=== PATIENT | male | born 1990 | race Caucasian/White ===

== ENCOUNTER 2018-02-06 19:04 | Inpatient (IN) | payer OTHER, SELFPAY ==
[~2018-02-06 19:04] MED LIST: ISOVUE-370 76%-LOCM 1 ML ONE; Lidocaine 1% PF 5 ML VIAL ONE; PROPOFOL 200 MG/20 ML VIAL ONE
[2018-02-06] MEDS ORDERED: Adacel (T-DAP) 0.5 ML VIAL ONE (19:11)
[2018-02-06] MEDS ORDERED: manNITOL 20% 500 ML ONE (19:15)
[2018-02-06] MEDS ORDERED: Atropine Sulfate 1 mg/10 ml Syringe ONE (19:15)
[2018-02-06] MEDS ORDERED: Midazolam HCl 5 mg/ml Vial ONE (19:19)
[2018-02-06] MEDS ORDERED: Fentanyl 100 MCG/2 ML VIAL ONE ×2 (19:20→19:28)
[2018-02-06 19:21] LABS: #Basophils 0.1 thou/uL (0.0-0.2); #Eosinphils 0.1 thou/uL (0.0-0.7); #Lymphocytes 2.9 thou/uL (1.20-3.40); #Monocytes 2.1 thou/uL (0.11-0.59); #Neutrophils 13.5 thou/uL (1.40-6.50); %Basophils 0.3 % (0.0-1.0); %Eosinophils 0.7 % (0.0-10.0); %Lymphocytes 15.6 % (21.0-51.0); %Monocytes 11.1 % (0.0-10.0); %Neutrophils 72.2 % (42.0-75.0); Hemoglobin 14.9 g/dL (14.0-18.0); Mean Corpuscular HGB CONC 34.7 g/dL (32.0-36.0); Mean Corpuscular Hemoglobin 29.6 pg (27.0-31.0); Mean Corpuscular Volume 85.2 fL (78.0-98.0); Mean Platelet Volume 7.3 fL (7.4-10.4); Platelet Count 196 thou/uL (130-400); RBC Distribution Width 11.5 % (11.5-14.5); Red Blood Cell (RBC) Count 5.04 mill/uL (4.70-6.10); White Blood Cell (WBC) Count 18.7 thou/uL (4.8-10.8)
[2018-02-06] MEDS ORDERED: HYDROmorphone 0.5 MG/0.5 ML SYRINGE ONE (19:28)
[2018-02-06] MEDS ORDERED: Midazolam HCl 2 mg/2 ml Vial ONE (19:28)
[2018-02-06] MEDS ORDERED: Lidocaine 0.5%/Epinephrine 1:200,000 50 ml Vial ONE (19:29)
[2018-02-06] MEDS ORDERED: Sodium Chloride 0.9% 30 ML ONE (19:29)
[2018-02-06] MEDS ORDERED: Thrombin 5000 UNITS/5 ML VIAL ONE ×2 (19:30→20:30)
[2018-02-06] MEDS ORDERED: CEFAZOLIN/Water 2 GM/20 ML SYRINGE SLOW IVP SCH (19:30)
[2018-02-06 19:37] LABS: ALT (SGPT) 44 U/L (8-55); AST (SGOT) 42 U/L (5-34); Albumin 4.2 g/dL (3.5-5.0); Alcohol Less than 10 mg/dL (Less than 10); Alkaline Phosphatase 82 U/L (40-150); Anion Gap 17 mmol/L (10-20); BUN (Urea Nitrogen) 12 mg/dL (8.9-20.6); Bilirubin, Total 0.6 mg/dL (0.2-1.2); Calc. Creatinine Clearance 0 mL/min (70-130); Calcium 8.5 mg/dL (7.8-10.44); Carbon Dioxide 20 mmol/L (22-29); Chloride 109 mmol/L (98-107); Estimated GFR-MDRD Greater than 90; Globulin 2.8 g/dL (2.4-3.5); Glucose 139 mg/dL (70-105); Potassium 3.7 mmol/L (3.5-5.1); Sodium 142 mmol/L (136-145)
[2018-02-06 19:51] LABS: Analyzer IN Cardio ER; CO2 Tension 42.4 mmHg (35.0-45.0); Puncture Site RRA; pH, Arterial 7.34 (7.35-7.45)
[2018-02-06 19:52] LABS: Actual Bicarbonate (HCO3a) 22.2 mEq/L (22-28); Base Excess (BEa) -3.5 mEq/L (-2.0 to +3.0); Hematocrit-ABG 38.8 % (42.0-52.0); Hemoglobin (Hb) 13.2 g/dL (14.0-18.0); O2 Tension (PaO2) 673.1 mmHg (80.0-100.0)
[2018-02-06 19:53] LABS: Calcium, Ionized 1.1 mmol/L (1.12-1.30)
[2018-02-06 20:00] LABS: INR-International Normal Ratio 1.2; PTT 28.5 SEC (22.9-36.1); Prothrombin Time 15.2 SEC (12.0-14.7)
[2018-02-06] MEDS ORDERED: Ondansetron HCl/PF 4 MG/2 ML Vial IVP PRN (20:11)
[2018-02-06] MEDS ORDERED: HumaLOG 300 UNITS/3 ML VIAL SC PRN (20:11)
[2018-02-06] MEDS ORDERED: Dextrose 50% Abboject 50 ML SYRINGE SLOW IVP PRN (20:11)
[2018-02-06] MEDS ORDERED: Dextrose 5% in Water 1,000 ML IV PRN (20:11)
[2018-02-06] MEDS ORDERED: Ondansetron ODT 4 MG TAB PO PRN (20:11)
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
[2018-02-06] MEDS ORDERED: Ventilator Sedation Protocol 1 EACH FS SCH (20:15)
[2018-02-06] MEDS ORDERED: Propofol BOLUS 1,000 MG/100 ML VIAL IV PRN (20:18)
[2018-02-06] MEDS ORDERED: Lorazepam 2 MG/ML VIAL SLOW IVP PRN (20:18)
[2018-02-06] MEDS ORDERED: DISCONTINUE PREVIOUS NARCOTIC PAIN MEDICATIONS AND BENZODIAZEPINES FS SCH (20:18)
[2018-02-06] MEDS ORDERED: Fentanyl BOLUS 250 ML IVPB PRN (20:18)
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
[2018-02-06 20:46] LABS: Bilirubin Negative (Negative); Blood, Urine Negative (Negative); Clarity CLEAR (Clear); Glucose, Urine (Dipstick) Negative (Negative); Leukocyte Negative (Negative); Nitrite Negative (Negative); Protein, Urine (Dipstick) 30 mg/dL (Neg-Trace); Specific Gravity, Urine 1.022 (1.002-1.036); Urobilinogen 0.2 mg/dL (0.2-1.0); pH, Urine 6.5 (5.0-9.0)
[2018-02-06 20:48] LABS: Bacteria/HPF None Seen HPF (None Seen); Hyaline Casts/LPF 0-3 HYALINE CAST LPF (0-3 Hyaline); Pathc Cast-AUWi Flag 0.43 (0-2.49); RBC/HPF 0-3 HPF (0-3); Squamous Epithelial 0-3 HPF (0-3); WBC/HPF 0-3 HPF (0-3)
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
[2018-02-06] MEDS ORDERED: Famotidine 20 MG TAB PO SCH (21:00)
[2018-02-06] MEDS ORDERED: Bacitracin Zinc Ointment 30 gm TUBE ONE (21:01)
--- NOTE | 2018-02-06 21:35 | RAD ---
PORTABLE CHEST ONE VIEW: 02/06/18 at 7:01 p.m. HISTORY: Central line placement. Respiratory failure. COMPARISON: Comparison made with earlier exam of 6:21 p.m. FINDINGS/IMPRESSION: Endotracheal tube remains in place. There has been interval placement of a nasogastric tube with tip in the projection of the stomach. There has been placement of a left subclavian central line with tip in the projection of the SVC. No pneumothoraces, lobar consolidation, or pleural effusions are seen. POS: [facility]
[2018-02-06] MEDS ORDERED: CEFAZOLIN 2 GM in Sodium Chloride 0.9% 100 ML IVPB SCH (22:00)
[2018-02-06 22:22] LABS: Actual Bicarbonate (HCO3a) 22.2 mEq/L (22-28); CO2 Tension 43.4 mmHg (35.0-45.0); O2 Tension (PaO2) 208.8 mmHg (80.0-100.0); pH, Arterial 7.33 (7.35-7.45)
[2018-02-06 22:23] LABS: Base Excess (BEa) -3.7 mEq/L (-2.0 to +3.0); Hematocrit-ABG 41.8 % (42.0-52.0); Hemoglobin (Hb) 13.7 g/dL (14.0-18.0); Puncture Site ALINE
[2018-02-06] MEDS: Sodium Chloride 0.9% 1,000 ML IV SCH (22:31)
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
[2018-02-06] MEDS ORDERED: Famotidine/PF 20 mg/2ml Vial SLOW IVP SCH (23:00)
[2018-02-06] MEDS: Famotidine/PF 20 mg/2ml Vial SLOW IVP SCH (23:33)
[2018-02-06] MEDS: fentaNYL Citrate/PF 2,000 MCG in Sodium Chloride 0.9% 60 ML IV SCH (23:42)
[2018-02-06] MEDS ORDERED: Labetalol HCl 100 MG/20 ML VIAL SLOW IVP PRN (23:43)
[2018-02-06] MEDS: Acetaminophen 1,000 MG in Premix Bag 1 BAG IVPB SCH (23:54)
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
[2018-02-07 02:42] LABS: Anion Gap 16 mmol/L (10-20); BUN (Urea Nitrogen) 9 mg/dL (8.9-20.6); Calc. Creatinine Clearance 156 mL/min (70-130); Calcium 8.5 mg/dL (7.8-10.44); Carbon Dioxide 21 mmol/L (22-29); Chloride 108 mmol/L (98-107); Estimated GFR-MDRD Greater than 90; Glucose 170 mg/dL (70-105); Magnesium 1.9 mg/dL (1.6-2.6); Phosphorus 2.9 mg/dL (2.3-4.7); Potassium 3.9 mmol/L (3.5-5.1); Sodium 141 mmol/L (136-145)
[2018-02-07 02:49] LABS: Band 20 % (5-11); Hemoglobin 13.2 g/dL (14.0-18.0); Lymphocytes 2 % (21-51); MDiff Complete? YES; Mean Corpuscular Hemoglobin 29.9 pg (27.0-31.0); Mean Corpuscular Volume 85.4 fL (78.0-98.0); Mean Platelet Volume 7.3 fL (7.4-10.4); Monocytes 13 % (0-10); Neutrophil 65 % (42-75); Platelet Count 218 thou/uL (130-400); RBC Distribution Width 11.5 % (11.5-14.5); White Blood Cell (WBC) Count 21.9 thou/uL (4.8-10.8)
[2018-02-07] MEDS ORDERED: Mannitol 12.5 GM/50 ML SLOW IVP SCH (03:00)
[2018-02-07] MEDS: Mannitol 12.5 GM/50 ML SLOW IVP SCH ×2 (03:08→10:26)
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
--- NOTE | 2018-02-07 03:11 | OP ---
PREOPERATIVE DIAGNOSES: Trauma respiratory failure, right epidural hematoma, facial fractures. POSTOPERATIVE DIAGNOSES: Trauma respiratory failure, right epidural hematoma, facial fractures. PROCEDURE: Left subclavian vein triple lumen catheter. SURGEON: Yunior Song M.D. ANESTHESIA: None. The patient is intubated. PROCEDURE: At the patient's bedside using sterile technique, left periclavicular area was prepared w ith ChloraPrep, draped in routine fashion. Trocar catheter reduced. Infraclavicular approached the subclavian vein, threading the J-wire, removed the trocar, used the Seldinger technique to place a tr iple lumen catheter, removed the J wire, secured with 2 interrupted sutures of 3-0 silk. Each port a spirated blood and flushed with saline solution. Sterile dressing applied. The patient tolerated th e procedure well.
[2018-02-07] MEDS: CEFAZOLIN/Water 2 GM/20 ML SYRINGE SLOW IVP SCH ×3 (04:09→20:27)
[2018-02-07] MEDS: Propofol 1,000 MG/100 ML VIAL IV PRN ×2 (04:27→17:18)
--- NOTE | 2018-02-07 06:06 | OP ---
DATE OF PROCEDURE: 02/06/2018 SURGEON: Andrea Lou M.D. PHYSICIAN REPRESENTATIVE: Cory Washington PA-C INDICATION: Prevent neurologic decline. DIAGNOSIS: Right cerebral convexity epidural hematoma. PROCEDURE: Emergent right frontal parietal temporal craniectomy, evacuation of hematoma and placemen t of drain. ANESTHESIA: General. TECHNIQUE: The patient was brought into the operating room, already intubated. He was placed on the table in supine position. His head was turned to the left for exposure of the right side. His head was shaved. There was skin defect that have been repaired with sandeep in the emergency room. Afte r cleaning the right side of the head, a large curvilinear incision was planned. This area was prepp ed and draped in the usual sterile fashion. After prepping and draping and after an appropriate oper ative pause, the incision was created. The skin flap and galea were reflected anteriorly. There was a large coronal oriented skull fracture present from near the vertex down to the zygoma. [place] holes were then placed within the skull and craniotomy flap was turned utilizing the skull defect from the fracture. There is a very large epidural hematoma present which was suctioned away. There was a la rge arterial feeder inferiorly near the temporal lobe in the location of the superficial temporal art sofi. That was cauterized. After irrigating away clot and gaining hemostasis, the bone flap was plac ed in sterile storage. An epidural drain was placed and brought out through a separate puncture site . The wound was then closed in an anatomic layer and a pressure dressing was loosely applied. The p rocedure came to an end without known complication.
[2018-02-07] MEDS: Sodium Chloride 0.9% 1,000 ML IV SCH ×3 (06:22→21:49)
[2018-02-07] MEDS: Acetaminophen 1,000 MG in Premix Bag 1 BAG IVPB SCH ×3 (06:24→17:15)
[2018-02-07 08:29] LABS: Sodium 142 mmol/L (136-145)
[2018-02-07] MEDS ORDERED: Magnesium Sulfate 2 GM in Sodium Chloride 0.9% 100 ML IVPB SCH (08:30)
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
--- NOTE | 2018-02-07 10:37 | PRG ---
DATE OF SERVICE: 02/07/2018 SUBJECTIVE: Mr. Anguiano is postop day #1 following right epidural hematoma evacuation and craniecto my. This morning at bedside, he is actually following commands for me periodically speaking and rele asing the right and left upper extremity on request. He does spontaneously move the lower extremitie s from time to time. He has significant ecchymosis and edema of both orbits and there is no eye open ing or it is tend to touch. Drain output has been persistent as to be expected with this type of ble ed. I did not remove his head wrap to check his incision at the moment. Pressure symptoms stable, m annitol q.6 hours. He is still continuing with a sodium of 141 and osmolarity of 305. Neurosurgery will continue to follow.
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
[2018-02-07] MEDS ORDERED: Potassium Phosphate 15 MMOL in Sodium Chloride 0.9% 100 ML IVPB SCH (12:00)
[2018-02-07] MEDS: hydrALAZINE 20 MG/ML VIAL SLOW IVP PRN ×2 (20:24→20:50)
[2018-02-07] MEDS: Famotidine/PF 20 mg/2ml Vial SLOW IVP SCH (20:26)
[2018-02-07] MEDS: Labetalol HCl 100 MG/20 ML VIAL SLOW IVP PRN (22:03)
[2018-02-08] MEDS: Acetaminophen 1,000 MG in Premix Bag 1 BAG IVPB SCH (00:32)
[2018-02-08] MEDS: CEFAZOLIN/Water 2 GM/20 ML SYRINGE SLOW IVP SCH ×3 (04:03→19:47)
[2018-02-08 05:01] LABS: #Lymphocytes 1.1 thou/uL (1.20-3.40); #Monocytes 1.7 thou/uL (0.11-0.59); #Neutrophils 13.8 thou/uL (1.40-6.50); %Basophils 0.1 % (0.0-1.0); %Eosinophils 0.2 % (0.0-10.0); %Lymphocytes 6.4 % (21.0-51.0); %Monocytes 10.3 % (0.0-10.0); Hemoglobin 10.1 g/dL (14.0-18.0); Mean Corpuscular HGB CONC 33.6 g/dL (32.0-36.0); Mean Corpuscular Hemoglobin 29.2 pg (27.0-31.0); Mean Corpuscular Volume 87.2 fL (78.0-98.0); Mean Platelet Volume 7.5 fL (7.4-10.4); Platelet Count 159 thou/uL (130-400); RBC Distribution Width 11.6 % (11.5-14.5); Red Blood Cell (RBC) Count 3.45 mill/uL (4.70-6.10); White Blood Cell (WBC) Count 16.6 thou/uL (4.8-10.8)
[2018-02-08 05:31] LABS: Anion Gap 11 mmol/L (10-20); BUN (Urea Nitrogen) 6 mg/dL (8.9-20.6); Calc. Creatinine Clearance 172 mL/min (70-130); Calcium 8.4 mg/dL (7.8-10.44); Carbon Dioxide 25 mmol/L (22-29); Chloride 107 mmol/L (98-107); Estimated GFR-MDRD Greater than 90; Glucose 140 mg/dL (70-105); Magnesium 2.3 mg/dL (1.6-2.6); Phosphorus 2.1 mg/dL (2.3-4.7); Potassium 3.4 mmol/L (3.5-5.1); Sodium 140 mmol/L (136-145)
[2018-02-08] MEDS ORDERED: Mannitol 12.5 GM/50 ML IV SCH (06:00)
[2018-02-08] MEDS ORDERED: Thrombin 5000 UNITS/5 ML VIAL ONE (06:09)
[2018-02-08] MEDS ORDERED: Sodium Chloride 0.9% 10 ML ONE (06:09)
[2018-02-08] MEDS ORDERED: Bacitracin Zinc Ointment 30 gm TUBE ONE ×2 (06:09→08:50)
[2018-02-08] MEDS: Sodium Chloride 0.9% 1,000 ML IV SCH ×2 (06:28→14:16)
[2018-02-08] MEDS ORDERED: Fentanyl 100 MCG/2 ML VIAL ONE ×3 (06:28→08:25)
[2018-02-08] MEDS ORDERED: Lidocaine 0.5%/Epinephrine 1:200,000 50 ml Vial ONE (06:37)
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
--- NOTE | 2018-02-08 07:22 | PRG ---
DATE OF SERVICE: 02/08/2018 Mr. Anguiano is a 27-year-old gentleman known to me for evacuation of a large epidural hematoma on th e right side 2 days ago. As part of his recovery he had begun following commands and was awake. How ever, at some point early this morning the nurse noted that he use of less brisk with following comma nds and he had some changes in his pupil. A repeat CT scan revealed a new epidural hematoma on the c ontralateral side. This was on the left side. He has also had some reaccumulation of blood on the r ight and the frontal region. While he has no midline shift, he does have mass effect on both sides a nd I suspect that these changes are responsible for his change in his neurologic exam. The plan will be to bring him to the operating room emergently for evacuation of the left-sided epidural hematoma and possibly a reopening of the right side for evacuation of the right frontal component. I spoke br iefly with the patient's father this morning to update him on our plans.
[2018-02-08 08:56] LABS: #Lymphocytes 1.1 thou/uL (1.20-3.40); #Monocytes 1.4 thou/uL (0.11-0.59); #Neutrophils 12.4 thou/uL (1.40-6.50); %Basophils 0.1 % (0.0-1.0); %Eosinophils 0.2 % (0.0-10.0); %Lymphocytes 7.5 % (21.0-51.0); %Monocytes 9.1 % (0.0-10.0); %Neutrophils 83.2 % (42.0-75.0); Hemoglobin 9.2 g/dL (14.0-18.0); Mean Corpuscular HGB CONC 33.5 g/dL (32.0-36.0); Mean Corpuscular Volume 86.7 fL (78.0-98.0); Mean Platelet Volume 7.3 fL (7.4-10.4); Platelet Count 153 thou/uL (130-400); RBC Distribution Width 11.7 % (11.5-14.5); Red Blood Cell (RBC) Count 3.17 mill/uL (4.70-6.10); White Blood Cell (WBC) Count 14.9 thou/uL (4.8-10.8)
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
[2018-02-08] MEDS: fentaNYL Citrate/PF 2,000 MCG in Sodium Chloride 0.9% 60 ML IV SCH (10:12)
[2018-02-08] MEDS ORDERED: Fentanyl 100 MCG/2 ML VIAL SLOW IVP SCH (10:15)
[2018-02-08 10:20] LABS: Actual Bicarbonate (HCO3a) 23.3 mEq/L (22-28); Base Excess (BEa) 0.6 mEq/L (-2.0 to +3.0); CO2 Tension 30.4 mmHg (35.0-45.0); Calcium, Ionized 1.1 mmol/L (1.12-1.30); Hemoglobin (Hb) 9.5 g/dL (14.0-18.0); O2 Tension (PaO2) 72.8 mmHg (80.0-100.0); Puncture Site LRA
[2018-02-08] MEDS ORDERED: Pancrelipase DR 12000 1 CAP FS PRN (10:28)
[2018-02-08] MEDS ORDERED: Sodium Bicarbonate Tab 325 MG TAB PER TUBE PRN (10:28)
[2018-02-08] MEDS ORDERED: Potassium Phosphate 30 MMOL in Sodium Chloride 0.9% 250 ML 250 ML IVPB SCH (10:30)
[2018-02-08] MEDS: NS 0.9% w/ 20 MEQ KCL 1,000 ML/1,000 ML BAG IV SCH ×2 (10:31→15:39)
[2018-02-08] MEDS: Famotidine/PF 20 mg/2ml Vial SLOW IVP SCH ×2 (11:49→21:09)
[2018-02-08] MEDS: Propofol 1,000 MG/100 ML VIAL IV PRN ×2 (12:56→23:12)
[2018-02-08 13:12] LABS: ALV-art Gradient 115.675 (0-20); Actual Bicarbonate (HCO3a) 25.3 mEq/L (22-28); Base Excess (BEa) 1.4 mEq/L (-2.0 to +3.0); CO2 Tension 36.9 mmHg (35.0-45.0); Calcium, Ionized 1.1 mmol/L (1.12-1.30); Hemoglobin (Hb) 9.1 g/dL (14.0-18.0); O2 Tension (PaO2) 123.4 mmHg (80.0-100.0); Puncture Site LRA; pH, Arterial 7.45 (7.35-7.45)
[2018-02-08] MEDS ORDERED: Calcium Chloride 1 GM/10 ML Abboject SYRINGE IVP SCH (15:30)
[2018-02-08 16:03] LABS: #Lymphocytes 1.3 thou/uL (1.20-3.40); #Monocytes 1.4 thou/uL (0.11-0.59); #Neutrophils 14.9 thou/uL (1.40-6.50); %Basophils 0.2 % (0.0-1.0); %Eosinophils 0.2 % (0.0-10.0); %Lymphocytes 7.3 % (21.0-51.0); %Monocytes 7.8 % (0.0-10.0); %Neutrophils 84.5 % (42.0-75.0); Hemoglobin 8.7 g/dL (14.0-18.0); Mean Corpuscular HGB CONC 34.3 g/dL (32.0-36.0); Mean Corpuscular Hemoglobin 29.8 pg (27.0-31.0); Mean Corpuscular Volume 86.8 fL (78.0-98.0); Platelet Count 174 thou/uL (130-400); RBC Distribution Width 11.5 % (11.5-14.5); Red Blood Cell (RBC) Count 2.91 mill/uL (4.70-6.10); White Blood Cell (WBC) Count 17.7 thou/uL (4.8-10.8)
[2018-02-08 16:15] LABS: Actual Bicarbonate (HCO3a) 24.6 mEq/L (22-28); Base Excess (BEa) 0.2 mEq/L (-2.0 to +3.0); CO2 Tension 38.5 mmHg (35.0-45.0); Hemoglobin (Hb) 8.9 g/dL (14.0-18.0); O2 Tension (PaO2) 96.9 mmHg (80.0-100.0); pH, Arterial 7.42 (7.35-7.45)
[2018-02-08] MEDS ORDERED: Furosemide 20 MG/2 ML VIAL SLOW IVP SCH (16:15)
[2018-02-08 16:16] LABS: ALV-art Gradient 140.175 (0-20); Calcium, Ionized 1.3 mmol/L (1.12-1.30); Puncture Site ALINE
[2018-02-08] MEDS: Acetaminophen 500 MG TAB PO PRN ×2 (16:37→23:53)
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
[2018-02-08 18:53] LABS: Bilirubin Negative (Negative); Blood, Urine Negative (Negative); Clarity CLEAR (Clear); Glucose, Urine (Dipstick) Negative (Negative); Leukocyte Negative (Negative); Nitrite Negative (Negative); Protein, Urine (Dipstick) Negative (Neg-Trace); Specific Gravity, Urine 1.015 (1.002-1.036); Urobilinogen 0.2 mg/dL (0.2-1.0); pH, Urine 5.5 (5.0-9.0)
[2018-02-08 19:10] LABS: Actual Bicarbonate (HCO3a) 27.3 mEq/L (22-28); CO2 Tension 40.7 mmHg (35.0-45.0); Hematocrit-ABG 27.3 % (42.0-52.0); Hemoglobin (Hb) 9.2 g/dL (14.0-18.0); O2 Tension (PaO2) 115.4 mmHg (80.0-100.0); pH, Arterial 7.44 (7.35-7.45)
[2018-02-08 19:11] LABS: Calcium, Ionized 1.1 mmol/L (1.12-1.30); Puncture Site ALINE
[2018-02-08 19:12] LABS: ALV-art Gradient 190.225 (0-20)
[2018-02-08 19:13] LABS: Actual Bicarbonate (HCO3a) 27.3 mEq/L (22-28); CO2 Tension 40.7 mmHg (35.0-45.0); pH, Arterial 7.45 (7.35-7.45)
[2018-02-08 19:14] LABS: Calcium, Ionized 1.1 mmol/L (1.12-1.30); Hemoglobin (Hb) 9.1 g/dL (14.0-18.0); Puncture Site ALINE
[2018-02-08 19:15] LABS: ALV-art Gradient 167.625 (0-20)
[2018-02-08] MEDS: Piperacillin/Tazobactam 4.5 GM in Sodium Chloride 0.9% 100 ML IVPB SCH (21:28)
[2018-02-08 21:55] LABS: Actual Bicarbonate (HCO3a) 26.5 mEq/L (22-28); CO2 Tension 31.7 mmHg (35.0-45.0); Hemoglobin (Hb) 8.9 g/dL (14.0-18.0); O2 Tension (PaO2) 66.9 mmHg (80.0-100.0); pH, Arterial 7.54 (7.35-7.45)
[2018-02-08 21:56] LABS: Calcium, Ionized 1.1 mmol/L (1.12-1.30); Puncture Site ALINE
[2018-02-08 21:57] LABS: ALV-art Gradient 107.375 (0-20)
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
[2018-02-09] MEDS: Piperacillin/Tazobactam 4.5 GM in Sodium Chloride 0.9% 100 ML IVPB SCH ×4 (02:38→20:31)
[2018-02-09 04:21] LABS: Anion Gap 9 mmol/L (10-20); BUN (Urea Nitrogen) 13 mg/dL (8.9-20.6); Calc. Creatinine Clearance 181 mL/min (70-130); Calcium 7.9 mg/dL (7.8-10.44); Carbon Dioxide 26 mmol/L (22-29); Chloride 110 mmol/L (98-107); Estimated GFR-MDRD Greater than 90; Glucose 163 mg/dL (70-105); Phosphorus Less than 1.0 mg/dL (2.3-4.7); Potassium 3.2 mmol/L (3.5-5.1); Sodium 142 mmol/L (136-145)
[2018-02-09] MEDS ORDERED: Potassium Phosphate 30 MMOL in Sodium Chloride 0.9% 500 ML IVPB SCH ×2 (04:45→15:30)
[2018-02-09] MEDS: Vancomycin HCl 1.75 GM in Sodium Chloride 0.9% 500 ML IVPB SCH ×2 (05:01→13:01)
[2018-02-09 05:12] LABS: Band 13 % (5-11); Hemoglobin 8.4 g/dL (14.0-18.0); Lymphocytes 10 % (21-51); MDiff Complete? YES; Mean Corpuscular HGB CONC 34.6 g/dL (32.0-36.0); Mean Corpuscular Hemoglobin 30.1 pg (27.0-31.0); Mean Corpuscular Volume 86.9 fL (78.0-98.0); Mean Platelet Volume 7.2 fL (7.4-10.4); Monocytes 4 % (0-10); Neutrophil 73 % (42-75); Platelet Count 147 thou/uL (130-400); RBC Distribution Width 11.4 % (11.5-14.5); Red Blood Cell (RBC) Count 2.77 mill/uL (4.70-6.10); White Blood Cell (WBC) Count 20.4 thou/uL (4.8-10.8)
[2018-02-09] MEDS: Acetaminophen 500 MG TAB PO PRN (06:02)
[2018-02-09] MEDS: Propofol 1,000 MG/100 ML VIAL IV PRN ×2 (06:02→16:06)
[2018-02-09 07:29] LABS: Base Excess (BEa) 3.8 mEq/L (-2.0 to +3.0); Hemoglobin (Hb) 8.4 g/dL (14.0-18.0); O2 Tension (PaO2) 84.2 mmHg (80.0-100.0); Puncture Site ALINE; pH, Arterial 7.45 (7.35-7.45)
[2018-02-09] MEDS: fentaNYL Citrate/PF 2,000 MCG in Sodium Chloride 0.9% 60 ML IV SCH (08:33)
[2018-02-09] MEDS: Famotidine 20 MG TAB PER TUBE SCH ×2 (09:10→20:21)
[2018-02-09] MEDS: Docusate Sodium 100 MG/10 ML UDCUP PER TUBE SCH (09:10)
[2018-02-09] MEDS: Senokot 8.6 MG TAB PER TUBE SCH (09:14)
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
[2018-02-09] MEDS: Acetaminophen 325 MG TAB PO PRN ×2 (12:58→20:18)
[2018-02-09 14:34] LABS: Anion Gap 9 mmol/L (10-20); BUN (Urea Nitrogen) 12 mg/dL (8.9-20.6); Calc. Creatinine Clearance 204 mL/min (70-130); Carbon Dioxide 26 mmol/L (22-29); Chloride 111 mmol/L (98-107); Estimated GFR-MDRD Greater than 90; Glucose 130 mg/dL (70-105); Magnesium 1.8 mg/dL (1.6-2.6); Phosphorus 1.4 mg/dL (2.3-4.7); Potassium 3.4 mmol/L (3.5-5.1); Sodium 143 mmol/L (136-145)
[2018-02-09] MEDS ORDERED: Potassium Phosphate 30 MMOL, Magnesium Sulfate 2 GM in Sodium Chloride 0.9% 500 ML IVPB SCH (15:30)
[2018-02-09] MEDS ORDERED: MAGNESIUM IVPB SCH (15:30)
[2018-02-09] MEDS ORDERED: NS IVPB SCH (15:30)
[2018-02-09 21:37] LABS: Vancomycin, Trough 8.5 ug/mL
[2018-02-10] MEDS: Propofol 1,000 MG/100 ML VIAL IV PRN ×3 (01:16→19:19)
[2018-02-10] MEDS: Acetaminophen 325 MG TAB PO PRN ×3 (01:17→09:37)
[2018-02-10] MEDS: fentaNYL Citrate/PF 2,000 MCG in Sodium Chloride 0.9% 60 ML IV SCH (04:27)
[2018-02-10] MEDS: Piperacillin/Tazobactam 4.5 GM in Sodium Chloride 0.9% 100 ML IVPB SCH ×4 (04:28→21:01)
[2018-02-10 04:38] LABS: Anion Gap 8 mmol/L (10-20); BUN (Urea Nitrogen) 11 mg/dL (8.9-20.6); Calc. Creatinine Clearance 224 mL/min (70-130); Carbon Dioxide 27 mmol/L (22-29); Chloride 111 mmol/L (98-107); Estimated GFR-MDRD Greater than 90; Glucose 140 mg/dL (70-105); Magnesium 2.1 mg/dL (1.6-2.6); Potassium 3.4 mmol/L (3.5-5.1); Sodium 143 mmol/L (136-145)
[2018-02-10 04:41] LABS: Phosphorus 1.3 mg/dL (2.3-4.7)
[2018-02-10] MEDS ORDERED: Potassium Phosphate 30 MMOL in Sodium Chloride 0.9% 500 ML IVPB SCH ×2 (05:15→18:45)
[2018-02-10 05:49] LABS: Band 9 % (5-11); Hemoglobin 7.7 g/dL (14.0-18.0); Lymphocytes 4 % (21-51); MDiff Complete? YES; Mean Corpuscular HGB CONC 33.2 g/dL (32.0-36.0); Mean Corpuscular Hemoglobin 29.6 pg (27.0-31.0); Mean Platelet Volume 7.8 fL (7.4-10.4); Monocytes 5 % (0-10); Neutrophil 82 % (42-75); Platelet Count 146 thou/uL (130-400); RBC Distribution Width 11.6 % (11.5-14.5); Red Blood Cell (RBC) Count 2.59 mill/uL (4.70-6.10); White Blood Cell (WBC) Count 17.7 thou/uL (4.8-10.8)
[2018-02-10 07:50] LABS: Actual Bicarbonate (HCO3a) 24.8 mEq/L (22-28); CO2 Tension 35.8 mmHg (35.0-45.0); O2 Tension (PaO2) 76.7 mmHg (80.0-100.0); pH, Arterial 7.46 (7.35-7.45)
[2018-02-10 07:51] LABS: Hemoglobin (Hb) 7.8 g/dL (14.0-18.0)
[2018-02-10 07:52] LABS: Puncture Site ALINE
--- NOTE | 2018-02-10 07:54 | PRG ---
DATE OF SERVICE: 02/09/2018 SUBJECTIVE: Annmarie is admitted in the ICU. He is postop day #1 following a reoperation for evalua tion of left epidural hematoma and recollection of right epidural hematoma. He is heavily sedated at bedside and does not have much of neurologic examination though he does withdraw to pain. His pupil s are equal, round and react to light. His mean arterial pressure has been maintained around 60-80 o vernight. Drain output bilaterally, 20 mL total and 10 mL out of each over the last 12 hours. have remained below 18. He will likely still need a great deal of time for us to track his neurologi c status where the . His most recent CT scan shows persistent right-sided epidural hematoma, th ough all his basal cisterns are open. He has excellent tapia-white differentiation and does not appea r to be under any significant integrated pressure. Neurosurgery's plan will be to follow along.
[2018-02-10] MEDS ORDERED: cloNIDine 0.1 MG TAB PO SCH ×2 (08:45→09:20)
[2018-02-10] MEDS ORDERED: Vecuronium 10 MG VIAL ONE (08:58)
--- NOTE | 2018-02-10 09:25 | CT ---
PRELIMINARY REPORT/[facility]/EMERGENTY AFTER-HOURS PROCEDURE CT Head Without Intravenous Contrast CLINICAL HISTORY: 27 years old, male; Condition or disease; Aneurysm, cerebral; Prior surgery; Surgery date: 3-7 days p ost-operative; Patient HX: Follow up , S/P surgery yesterday TECHNIQUE: Axial computed tomography images of the head/brain without intravenous contrast. COMPARISON: CT Brain WO Con 2018-02-09 00:33 FINDINGS: Postoperative changes from recent bilateral craniectomy with surgical drain, subcutaneous gas, diffus e scalp soft tissue swelling and multiple skin sandeep. Right frontal epidural and subdural hematoma extending into the right parietal and temporal regions m easuring approximately 2.1 cm in greatest thickness in the right frontal region and containing focus of gas in the right temporal region, not significantly changed from prior examination. Resulting mass effect to the underlying right cerebral hemisphere with effacement of the right frontal horn and res ulting 5 mm midline shift to the left also unchanged. Smaller left frontal extra-axial blood containing gas measuring approximately 1 cm in greatest thickn ess in the left frontal region, unchanged from prior examination. Opacification of the bilateral ethmoid, sphenoid and left maxillary sinuses. Diffuse facial and preseptal periorbital soft tissue swelling bilaterally. Endotracheal and nasogastric tubes are in place. IMPRESSION: 1. Right greater than left bilateral intracranial hemorrhages as described above with midline shift t o the left, unchanged from prior examination. 2. Postsurgical changes from recent bilateral craniectomy as described above. Thank you for allowing us to participate in the care of your patient. Dictated and Authenticated by: Ryan Wright MD 02/10/2018 4:16 AM Central Time ([place] & [place]) CT HEAD NONCONTRAST: Date: 02-10-18 Performed on emergency basis at 0345 hours. History: Intracranial hemorrhage. Surgery. Follow up. Comparison: 02-09-18 FINDINGS: Agree with the preliminary report by Dr. Wright from [facility]. Post-operative changes are a gain demonstrated with pneumocephalus and bifrontal biconvex extraaxial hematomas that are unchanged in appearance. Leftward shift of the septum pellucidum and diffuse cerebral edema are not changed sig nificantly from the previous exam. No new abnormalities are evident. Code QA POS: [facility]
[2018-02-10] MEDS ORDERED: Dexamethasone 10 MG in Sodium Chloride 0.9% 50 ML IVPB SCH ×2 (09:30→13:45)
[2018-02-10] MEDS: Docusate Sodium 100 MG/10 ML UDCUP PER TUBE SCH (09:36)
[2018-02-10] MEDS: Senokot 8.6 MG TAB PER TUBE SCH (09:37)
[2018-02-10] MEDS: Famotidine 20 MG TAB PER TUBE SCH ×2 (09:37→21:00)
[2018-02-10] MEDS: Bisacodyl 10 MG SUPP PR SCH (11:12)
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
--- NOTE | 2018-02-10 11:35 | ULT ---
BILATERAL LOWER EXTREMITY VENOUS ULTRASOUND WITH DOPPLER: HISTORY: Head injury. COMPARISON: None. TECHNIQUE: Vu-scale, color-flow, and Doppler imaging with spectral wave-form analysis was performed of the lef t and right lower extremity venous system. FINDINGS: Limited evaluation of the right common femoral vein and greater saphenous vein due to bandage materia l in the groin. The right femoral vein and popliteal vein demonstrates compressibility, presence of flow, and augmentation. There is flow in the posterior tibial vein and in the profunda vein. With regard to the left lower extremity, there is compressibility, presence of flow, and augmentation in the common femoral vein, femoral vein, and popliteal vein. There is flow in the greater saphenou s vein, profunda vein, and posterior tibial vein. IMPRESSION: No evidence of thrombus in the visualized right and left lower extremity deep venous system. POS: [facility]
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
[2018-02-10] MEDS: NS 0.9% w/ 20 MEQ KCL 1,000 ML/1,000 ML BAG IV SCH (12:28)
[2018-02-10] MEDS ORDERED: Acetaminophen 1,000 MG in Premix Bag 1 BAG IVPB PRN (14:30)
[2018-02-10] MEDS: cloNIDine 0.1 MG TAB PO SCH ×2 (14:39→21:00)
[2018-02-10] MEDS ORDERED: Acetaminophen 1,000 MG in Premix Bag 1 BAG IVPB SCH (16:45)
[2018-02-10 17:07] LABS: ALV-art Gradient 79.575 (0-20); Actual Bicarbonate (HCO3a) 25.2 mEq/L (22-28); Base Excess (BEa) 1.7 mEq/L (-2.0 to +3.0); CO2 Tension 34.5 mmHg (35.0-45.0); Calcium, Ionized 1.1 mmol/L (1.12-1.30); Hemoglobin (Hb) 7.6 g/dL (14.0-18.0); O2 Tension (PaO2) 162.5 mmHg (80.0-100.0); Puncture Site ALINE; pH, Arterial 7.48 (7.35-7.45)
[2018-02-10] MEDS: Dexamethasone 10 MG in Sodium Chloride 0.9% 50 ML IVPB SCH (17:08)
[2018-02-10 17:37] LABS: Anion Gap 7 mmol/L (10-20); BUN (Urea Nitrogen) 10 mg/dL (8.9-20.6); Calc. Creatinine Clearance 222 mL/min (70-130); Carbon Dioxide 28 mmol/L (22-29); Chloride 111 mmol/L (98-107); Estimated GFR-MDRD Greater than 90; Glucose 135 mg/dL (70-105); Phosphorus 2.1 mg/dL (2.3-4.7); Potassium 3.5 mmol/L (3.5-5.1); Sodium 142 mmol/L (136-145)
[2018-02-10] MEDS: hydrALAZINE 20 MG/ML VIAL SLOW IVP PRN (20:31)
[2018-02-10] MEDS: Acetaminophen 1,000 MG in Premix Bag 1 BAG IVPB SCH (21:01)
[2018-02-11] MEDS: Dexamethasone 10 MG in Sodium Chloride 0.9% 50 ML IVPB SCH (01:00)
[2018-02-11] MEDS: Propofol 1,000 MG/100 ML VIAL IV PRN ×2 (01:39→08:49)
[2018-02-11] MEDS: Acetaminophen 1,000 MG in Premix Bag 1 BAG IVPB SCH ×2 (03:17→08:48)
[2018-02-11] MEDS: Piperacillin/Tazobactam 4.5 GM in Sodium Chloride 0.9% 100 ML IVPB SCH ×4 (03:18→20:41)
[2018-02-11] MEDS: cloNIDine 0.1 MG TAB PO SCH ×4 (03:18→20:42)
[2018-02-11 05:01] LABS: Anion Gap 9 mmol/L (10-20); BUN (Urea Nitrogen) 10 mg/dL (8.9-20.6); Calc. Creatinine Clearance 233 mL/min (70-130); Calcium 8.3 mg/dL (7.8-10.44); Carbon Dioxide 26 mmol/L (22-29); Chloride 110 mmol/L (98-107); Estimated GFR-MDRD Greater than 90; Glucose 112 mg/dL (70-105); Phosphorus 2.6 mg/dL (2.3-4.7); Potassium 3.8 mmol/L (3.5-5.1); Sodium 141 mmol/L (136-145)
[2018-02-11 05:17] LABS: Band 17 % (5-11); Hemoglobin 7.8 g/dL (14.0-18.0); Lymphocytes 9 % (21-51); MDiff Complete? YES; Mean Corpuscular HGB CONC 34.4 g/dL (32.0-36.0); Mean Corpuscular Hemoglobin 30.2 pg (27.0-31.0); Mean Corpuscular Volume 87.9 fL (78.0-98.0); Mean Platelet Volume 7.5 fL (7.4-10.4); Monocytes 1 % (0-10); Neutrophil 73 % (42-75); PLT Morphology Comment Appears Adequate; Platelet Count 170 thou/uL (130-400); RBC Distribution Width 11.7 % (11.5-14.5); Red Blood Cell (RBC) Count 2.56 mill/uL (4.70-6.10); White Blood Cell (WBC) Count 12.6 thou/uL (4.8-10.8)
[2018-02-11] MEDS ORDERED: Potassium Phosphate 30 MMOL in Sodium Chloride 0.9% 250 ML 250 ML IVPB SCH (08:15)
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
[2018-02-11] MEDS ORDERED: Vecuronium 10 MG VIAL ONE (08:53)
[2018-02-11] MEDS ORDERED: Lidocaine 1% w/Epinephrine 1:100K 20 ML VIAL ONE (08:55)
[2018-02-11] MEDS ORDERED: HYDROcodone/Acetaminophen 10/325 mg Tablet PO SCH (09:45)
[2018-02-11] MEDS ORDERED: HYDROcodone/Acetaminophen 10/325 mg Tablet PER TUBE SCH ×2 (09:45→09:46)
[2018-02-11] MEDS: Bisacodyl 10 MG SUPP PR SCH (11:06)
[2018-02-11] MEDS: Docusate Sodium 100 MG/10 ML UDCUP PER TUBE SCH (11:06)
[2018-02-11] MEDS: Senokot 8.6 MG TAB PER TUBE SCH (11:07)
[2018-02-11] MEDS: HYDROcodone/Acetaminophen 10/325 mg Tablet PER TUBE SCH ×2 (11:07→15:30)
[2018-02-11] MEDS: Famotidine 20 MG TAB PER TUBE SCH ×2 (11:07→20:42)
[2018-02-11] MEDS: Labetalol HCl 100 MG/20 ML VIAL SLOW IVP PRN (11:22)
--- NOTE | 2018-02-11 11:27 | RAD ---
SINGLE VIEW ABDOMEN: HISTORY: Dobhoff tube placement. COMPARISON: None FINDINGS: A single view of the upper abdomen shows a Dobhoff tube in the stomach. A nonobstructed bowel gas pa ttern is present. IMPRESSION: Dobhoff tube located in the stomach. POS: [facility]
[2018-02-11] MEDS: hydrALAZINE 20 MG/ML VIAL SLOW IVP PRN ×2 (12:54→19:29)
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
[2018-02-11] MEDS: NS 0.9% w/ 20 MEQ KCL 1,000 ML/1,000 ML BAG IV SCH (15:23)
[2018-02-11] MEDS ORDERED: traMADol HCl 50 MG TAB PO SCH (16:45)
[2018-02-11] MEDS: Acetaminophen 325 MG TAB PO SCH ×2 (16:51→20:43)
[2018-02-11] MEDS: traMADol HCl 50 MG TAB PO PRN ×2 (19:05→23:06)
[2018-02-11] MEDS ORDERED: Acetaminophen 325 MG TAB PO PRN (21:00)
[2018-02-11 21:26] LABS: Vancomycin, Trough 10.4 ug/mL
[2018-02-12] MEDS: Acetaminophen 325 MG TAB PO SCH ×6 (00:06→20:12)
[2018-02-12] MEDS: hydrALAZINE 20 MG/ML VIAL SLOW IVP PRN ×2 (01:42→06:49)
[2018-02-12] MEDS: Labetalol HCl 100 MG/20 ML VIAL SLOW IVP PRN (02:52)
[2018-02-12] MEDS: Piperacillin/Tazobactam 4.5 GM in Sodium Chloride 0.9% 100 ML IVPB SCH ×4 (02:53→20:03)
[2018-02-12] MEDS: cloNIDine 0.1 MG TAB PO SCH ×4 (02:53→20:06)
[2018-02-12] MEDS: traMADol HCl 50 MG TAB PO PRN ×2 (02:54→10:14)
[2018-02-12 04:26] LABS: Anion Gap 10 mmol/L (10-20); BUN (Urea Nitrogen) 14 mg/dL (8.9-20.6); Calc. Creatinine Clearance 230 mL/min (70-130); Calcium 8.2 mg/dL (7.8-10.44); Carbon Dioxide 26 mmol/L (22-29); Chloride 109 mmol/L (98-107); Estimated GFR-MDRD Greater than 90; Glucose 129 mg/dL (70-105); Magnesium 1.9 mg/dL (1.6-2.6); Phosphorus 2.2 mg/dL (2.3-4.7); Potassium 3.3 mmol/L (3.5-5.1); Sodium 142 mmol/L (136-145)
[2018-02-12 04:29] LABS: Band 3 % (5-11); Eosinophils 1 % (0-10); Hemoglobin 7.9 g/dL (14.0-18.0); Lymphocytes 7 % (21-51); MDiff Complete? YES; Mean Corpuscular HGB CONC 34.7 g/dL (32.0-36.0); Mean Corpuscular Hemoglobin 30.5 pg (27.0-31.0); Mean Platelet Volume 6.7 fL (7.4-10.4); Metamyelocyte 1 % (0-0); Monocytes 4 % (0-10); Neutrophil 84 % (42-75); PLT Morphology Comment Appears Adequate; Platelet Count 225 thou/uL (130-400); Polychromasia SLIGHT = 2-3 cells (100X) (0-2/hpf); Red Blood Cell (RBC) Count 2.58 mill/uL (4.70-6.10)
[2018-02-12] MEDS: NS 0.9% w/ 20 MEQ KCL 1,000 ML/1,000 ML BAG IV SCH ×2 (04:42→22:09)
[2018-02-12] MEDS: Vancomycin HCl 2.5 GM in Sodium Chloride 0.9% 500 ML IVPB SCH ×3 (06:01→21:55)
[2018-02-12] MEDS: Amantadine HCl 100 mg Capsule PO SCH (08:11)
[2018-02-12] MEDS: Docusate Sodium 100 MG/10 ML UDCUP PER TUBE SCH (08:12)
[2018-02-12] MEDS: Bisacodyl 10 MG SUPP PR SCH (08:12)
[2018-02-12] MEDS: Famotidine 20 MG TAB PER TUBE SCH ×2 (08:14→20:05)
[2018-02-12] MEDS: Senokot 8.6 MG TAB PER TUBE SCH (08:14)
[2018-02-12] MEDS ORDERED: Potassium Phosphate 30 MMOL, Magnesium Sulfate 4 GM in Sodium Chloride 0.9% 250 ML 250 ML IVPB SCH (08:45)
[2018-02-12] MEDS: Ferrous Sulfate 325 MG TAB PO SCH ×2 (10:15→20:05)
[2018-02-12] MEDS: Ascorbic Acid 500 mg Chewable Tablet PO SCH ×2 (10:15→20:06)
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
[2018-02-12] MEDS: Acetaminophen 1,000 MG in Premix Bag 1 BAG IVPB SCH (21:54)
[2018-02-13] MEDS: cloNIDine 0.1 MG TAB PO SCH ×4 (00:59→21:44)
[2018-02-13] MEDS: Acetaminophen 1,000 MG in Premix Bag 1 BAG IVPB SCH ×2 (03:53→10:42)
[2018-02-13] MEDS: Piperacillin/Tazobactam 4.5 GM in Sodium Chloride 0.9% 100 ML IVPB SCH ×4 (03:54→21:44)
[2018-02-13 05:53] LABS: Vancomycin, Trough 10.1 ug/mL
[2018-02-13 05:58] LABS: Anion Gap 11 mmol/L (10-20); BUN (Urea Nitrogen) 9 mg/dL (8.9-20.6); Calc. Creatinine Clearance 249 mL/min (70-130); Calcium 8.7 mg/dL (7.8-10.44); Carbon Dioxide 25 mmol/L (22-29); Chloride 107 mmol/L (98-107); Estimated GFR-MDRD Greater than 90; Glucose 81 mg/dL (70-105); Magnesium 2.1 mg/dL (1.6-2.6); Phosphorus 3.1 mg/dL (2.3-4.7); Potassium 3.9 mmol/L (3.5-5.1); Sodium 139 mmol/L (136-145)
[2018-02-13] MEDS: Vancomycin HCl 2.5 GM in Sodium Chloride 0.9% 500 ML IVPB SCH (06:09)
[2018-02-13 06:11] LABS: Band 17 % (5-11); Hemoglobin 9.6 g/dL (14.0-18.0); Lymphocytes 9 % (21-51); MDiff Complete? YES; Mean Corpuscular HGB CONC 33.4 g/dL (32.0-36.0); Mean Corpuscular Hemoglobin 29.3 pg (27.0-31.0); Mean Corpuscular Volume 87.8 fL (78.0-98.0); Mean Platelet Volume 6.5 fL (7.4-10.4); Metamyelocyte 5 % (0-0); Monocytes 6 % (0-10); Neutrophil 62 % (42-75); PLT Morphology Comment Appears Adequate; Platelet Count 309 thou/uL (130-400); RBC Distribution Width 12.2 % (11.5-14.5); Red Blood Cell (RBC) Count 3.26 mill/uL (4.70-6.10); White Blood Cell (WBC) Count 15.4 thou/uL (4.8-10.8)
[2018-02-13] MEDS: Ascorbic Acid 500 mg Chewable Tablet PO SCH ×2 (09:22→21:44)
[2018-02-13] MEDS: Amantadine HCl 100 mg Capsule PO SCH (09:22)
[2018-02-13] MEDS: Bisacodyl 10 MG SUPP PR SCH (09:23)
[2018-02-13] MEDS: Docusate Sodium 100 MG/10 ML UDCUP PER TUBE SCH (09:24)
[2018-02-13] MEDS: Ferrous Sulfate 325 MG TAB PO SCH ×2 (09:24→21:43)
[2018-02-13] MEDS: Senokot 8.6 MG TAB PER TUBE SCH (09:24)
[2018-02-13] MEDS: Famotidine 20 MG TAB PER TUBE SCH ×2 (09:24→21:43)
[2018-02-13] MEDS ORDERED: Acetaminophen 650 MG Suppository PR PRN (11:19)
[2018-02-13] MEDS: NS 0.9% w/ 20 MEQ KCL 1,000 ML/1,000 ML BAG IV SCH (14:53)
--- NOTE | 2018-02-13 17:09 | RAD ---
ONE VIEW ABDOMEN 02/13/18 HISTORY: Dobhoff feeding tube placement. COMPARISON: None. FINDINGS: Dobhoff feeding tube is identified with the distal tip at the level of the gastric antrum. Bowel gas pattern is nonspecific. IMPRESSION: Dobhoff feeding tube with the distal tip at the level of the gastric antrum. Advancement is recommend ed. POS: [facility]
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
[2018-02-14] MEDS: NS 0.9% w/ 20 MEQ KCL 1,000 ML/1,000 ML BAG IV SCH ×2 (01:42→12:19)
[2018-02-14] MEDS: Piperacillin/Tazobactam 4.5 GM in Sodium Chloride 0.9% 100 ML IVPB SCH ×2 (02:24→08:33)
[2018-02-14] MEDS: cloNIDine 0.1 MG TAB PO SCH ×4 (02:24→21:03)
[2018-02-14] MEDS ORDERED: Norepinephrine 8 MG/250 ML BAG IVPB PRN ×2 (05:53→06:09)
[2018-02-14 06:10] LABS: Vancomycin, Trough 7.7 ug/mL
[2018-02-14 06:12] LABS: Anion Gap 12 mmol/L (10-20); BUN (Urea Nitrogen) 9 mg/dL (8.9-20.6); Calc. Creatinine Clearance 244 mL/min (70-130); Calcium 8.4 mg/dL (7.8-10.44); Carbon Dioxide 26 mmol/L (22-29); Chloride 105 mmol/L (98-107); Estimated GFR-MDRD Greater than 90; Glucose 87 mg/dL (70-105); Phosphorus 3.2 mg/dL (2.3-4.7); Potassium 3.6 mmol/L (3.5-5.1); Sodium 139 mmol/L (136-145)
[2018-02-14 06:36] LABS: Band 11 % (5-11); Eosinophils 4 % (0-10); Hemoglobin 9.4 g/dL (14.0-18.0); Lymphocytes 10 % (21-51); MDiff Complete? YES; Mean Corpuscular HGB CONC 33.2 g/dL (32.0-36.0); Mean Corpuscular Hemoglobin 29.1 pg (27.0-31.0); Mean Corpuscular Volume 87.6 fL (78.0-98.0); Metamyelocyte 2 % (0-0); Monocytes 6 % (0-10); Neutrophil 67 % (42-75); PLT Morphology Comment Appears Adequate; Platelet Count 325 thou/uL (130-400); RBC Distribution Width 12.5 % (11.5-14.5); Red Blood Cell (RBC) Count 3.22 mill/uL (4.70-6.10); White Blood Cell (WBC) Count 14.5 thou/uL (4.8-10.8)
[2018-02-14] MEDS: Amantadine HCl 100 mg Capsule PO SCH (08:34)
[2018-02-14] MEDS: Bisacodyl 10 MG SUPP PR SCH (08:34)
[2018-02-14] MEDS: Ascorbic Acid 500 mg Chewable Tablet PO SCH ×2 (08:34→21:03)
[2018-02-14] MEDS: Docusate Sodium 100 MG/10 ML UDCUP PER TUBE SCH (08:35)
[2018-02-14] MEDS: Famotidine 20 MG TAB PER TUBE SCH ×2 (08:35→21:03)
[2018-02-14] MEDS: Ferrous Sulfate 325 MG TAB PO SCH ×2 (08:35→21:02)
[2018-02-14] MEDS: Senokot 8.6 MG TAB PER TUBE SCH (08:36)
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
--- NOTE | 2018-02-14 17:03 | RAD ---
ONE VIEW ABDOMEN: HISTORY: Dobhoff feeding tube placement. FINDINGS\IMPRESSION: A Dobhoff feeding tube is noted, with the distal tip at the level of the duodenal bulb. The bowel ga s pattern is nonspecific. POS: [facility]
[2018-02-15] MEDS: cloNIDine 0.1 MG TAB PO SCH ×4 (04:37→21:01)
[2018-02-15 05:08] LABS: Anion Gap 13 mmol/L (10-20); BUN (Urea Nitrogen) 11 mg/dL (8.9-20.6); Calc. Creatinine Clearance 219 mL/min (70-130); Calcium 8.9 mg/dL (7.8-10.44); Carbon Dioxide 27 mmol/L (22-29); Chloride 104 mmol/L (98-107); Estimated GFR-MDRD Greater than 90; Glucose 99 mg/dL (70-105); Magnesium 2.1 mg/dL (1.6-2.6); Phosphorus 2.9 mg/dL (2.3-4.7); Potassium 3.5 mmol/L (3.5-5.1); Sodium 140 mmol/L (136-145)
[2018-02-15 05:34] LABS: Band 6 % (5-11); Eosinophils 2 % (0-10); Hemoglobin 10.5 g/dL (14.0-18.0); Lymphocytes 15 % (21-51); MDiff Complete? YES; Mean Corpuscular Hemoglobin 29.8 pg (27.0-31.0); Mean Corpuscular Volume 87.8 fL (78.0-98.0); Mean Platelet Volume 6.7 fL (7.4-10.4); Monocytes 11 % (0-10); Neutrophil 65 % (42-75); PLT Morphology Comment Appears Increased; Platelet Count 445 thou/uL (130-400); RBC Distribution Width 12.5 % (11.5-14.5); Red Blood Cell (RBC) Count 3.52 mill/uL (4.70-6.10); White Blood Cell (WBC) Count 17.7 thou/uL (4.8-10.8)
[2018-02-15] MEDS ORDERED: Fentanyl BOLUS 250 ML IVPB PRN (08:03)
[2018-02-15] MEDS ORDERED: fentaNYL Citrate/PF 2,000 MCG in Sodium Chloride 0.9% 60 ML IV SCH (08:15)
[2018-02-15] MEDS: Amantadine HCl 100 mg Capsule PO SCH (08:33)
[2018-02-15] MEDS: Ascorbic Acid 500 mg Chewable Tablet PO SCH ×2 (08:33→21:01)
[2018-02-15] MEDS: Famotidine 20 MG TAB PER TUBE SCH ×2 (08:34→21:02)
[2018-02-15] MEDS: Bisacodyl 10 MG SUPP PR SCH (08:34)
[2018-02-15] MEDS: Docusate Sodium 100 MG/10 ML UDCUP PER TUBE SCH (08:34)
[2018-02-15] MEDS: Ferrous Sulfate 325 MG TAB PO SCH ×2 (08:34→21:02)
[2018-02-15] MEDS: Senokot 8.6 MG TAB PER TUBE SCH (08:35)
[2018-02-15] MEDS: NS 0.9% w/ 20 MEQ KCL 1,000 ML/1,000 ML BAG IV SCH (14:40)
[2018-02-15] MEDS: Acetaminophen 325 MG/10.15 ML UDCUP PO SCH ×2 (14:58→21:01)
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
[2018-02-16] MEDS: cloNIDine 0.1 MG TAB PO SCH ×4 (03:12→20:42)
[2018-02-16] MEDS: Acetaminophen 325 MG/10.15 ML UDCUP PO SCH ×4 (03:13→20:42)
[2018-02-16 04:46] LABS: Anion Gap 10 mmol/L (10-20); BUN (Urea Nitrogen) 10 mg/dL (8.9-20.6); Calc. Creatinine Clearance 219 mL/min (70-130); Calcium 8.8 mg/dL (7.8-10.44); Carbon Dioxide 27 mmol/L (22-29); Chloride 107 mmol/L (98-107); Estimated GFR-MDRD Greater than 90; Glucose 90 mg/dL (70-105); Phosphorus 3.4 mg/dL (2.3-4.7); Potassium 3.7 mmol/L (3.5-5.1); Sodium 140 mmol/L (136-145)
[2018-02-16 04:54] LABS: Band 4 % (5-11); Eosinophils 5 % (0-10); Hemoglobin 9.7 g/dL (14.0-18.0); Lymphocytes 11 % (21-51); MDiff Complete? YES; Mean Corpuscular HGB CONC 34.5 g/dL (32.0-36.0); Mean Corpuscular Hemoglobin 30.4 pg (27.0-31.0); Mean Corpuscular Volume 88.2 fL (78.0-98.0); Mean Platelet Volume 6.9 fL (7.4-10.4); Monocytes 12 % (0-10); Neutrophil 67 % (42-75); PLT Morphology Comment Appears Adequate; Platelet Count 357 thou/uL (130-400); RBC Distribution Width 12.6 % (11.5-14.5); Red Blood Cell (RBC) Count 3.18 mill/uL (4.70-6.10); White Blood Cell (WBC) Count 12.3 thou/uL (4.8-10.8)
[2018-02-16] MEDS: Docusate Sodium 100 MG/10 ML UDCUP PER TUBE SCH ×2 (10:08→10:17)
[2018-02-16] MEDS: Amantadine HCl 100 mg Capsule PO SCH (10:08)
[2018-02-16] MEDS: Famotidine 20 MG TAB PER TUBE SCH ×2 (10:08→20:43)
[2018-02-16] MEDS: Ascorbic Acid 500 mg Chewable Tablet PO SCH ×2 (10:08→20:43)
[2018-02-16] MEDS: Ferrous Sulfate 325 MG TAB PO SCH ×2 (10:09→20:43)
[2018-02-16] MEDS: Senokot 8.6 MG TAB PER TUBE SCH ×2 (10:09→10:17)
[2018-02-16] MEDS: Bisacodyl 10 MG SUPP PR SCH ×2 (10:10→10:17)
[2018-02-16] MEDS: NS 0.9% w/ 20 MEQ KCL 1,000 ML/1,000 ML BAG IV SCH (10:45)
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
[2018-02-17] MEDS: cloNIDine 0.1 MG TAB PO SCH ×4 (02:52→21:00)
[2018-02-17] MEDS: Acetaminophen 325 MG/10.15 ML UDCUP PO SCH ×4 (02:53→20:57)
[2018-02-17] MEDS: Docusate Sodium 100 MG/10 ML UDCUP PER TUBE SCH (09:17)
[2018-02-17] MEDS: Ascorbic Acid 500 mg Chewable Tablet PO SCH ×2 (09:18→21:03)
[2018-02-17] MEDS: Ferrous Sulfate 325 MG TAB PO SCH ×2 (09:18→21:02)
[2018-02-17] MEDS: Amantadine HCl 100 mg Capsule PO SCH (09:18)
[2018-02-17] MEDS: Bisacodyl 10 MG SUPP PR SCH (09:18)
[2018-02-17] MEDS: Senokot 8.6 MG TAB PER TUBE SCH (09:19)
[2018-02-17] MEDS: Famotidine 20 MG TAB PER TUBE SCH (09:19)
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
[2018-02-17] MEDS: Famotidine 20 MG TAB PO SCH (21:02)
[2018-02-18] MEDS: cloNIDine 0.1 MG TAB PO SCH (02:18)
[2018-02-18] MEDS: Acetaminophen 325 MG/10.15 ML UDCUP PO SCH ×4 (02:21→20:23)
[2018-02-18] MEDS: Docusate Sodium 100 MG/10 ML UDCUP PER TUBE SCH (08:40)
[2018-02-18] MEDS: Ferrous Sulfate 325 MG TAB PO SCH ×2 (08:41→20:24)
[2018-02-18] MEDS: Amantadine HCl 100 mg Capsule PO SCH (08:41)
[2018-02-18] MEDS: Bisacodyl 10 MG SUPP PR SCH (08:41)
[2018-02-18] MEDS: Famotidine 20 MG TAB PO SCH ×2 (08:41→20:24)
[2018-02-18] MEDS: Ascorbic Acid 500 mg Chewable Tablet PO SCH ×2 (08:41→20:23)
[2018-02-18] MEDS: Senokot 8.6 MG TAB PER TUBE SCH (08:42)
[2018-02-18] MEDS: Scopolamine 1.5 mg/72 hour Patch TD SCH (11:38)
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
[2018-02-18] MEDS ORDERED: Ciprofloxacin 500 MG TAB PO SCH (21:00)
[2018-02-19] MEDS: Acetaminophen 325 MG/10.15 ML UDCUP PO SCH (03:28)
[2018-02-19] MEDS: Ascorbic Acid 500 mg Chewable Tablet PO SCH ×2 (09:03→20:44)
[2018-02-19] MEDS: Amantadine HCl 100 mg Capsule PO SCH (09:03)
[2018-02-19] MEDS: Ferrous Sulfate 325 MG TAB PO SCH ×2 (09:03→20:44)
[2018-02-19] MEDS: Famotidine 20 MG TAB PO SCH ×2 (09:04→20:45)
[2018-02-19] MEDS: Acetaminophen 650 MG/20.3 ML UDCUP PO SCH ×3 (09:04→20:45)
[2018-02-19 09:59] LABS: Anion Gap 11 mmol/L (10-20); BUN (Urea Nitrogen) 11 mg/dL (8.9-20.6); Calc. Creatinine Clearance 169 mL/min (70-130); Calcium 8.9 mg/dL (7.8-10.44); Carbon Dioxide 29 mmol/L (22-29); Chloride 102 mmol/L (98-107); Estimated GFR-MDRD Greater than 90; Glucose 92 mg/dL (70-105); Magnesium 2.3 mg/dL (1.6-2.6); Phosphorus 3.7 mg/dL (2.3-4.7); Potassium 3.9 mmol/L (3.5-5.1); Sodium 138 mmol/L (136-145)
[2018-02-19 11:43] VITALS: BMI 24.6
[2018-02-19] MEDS ORDERED: Melatonin 3 MG TAB PO PRN (11:55)
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
[2018-02-20] MEDS: Acetaminophen 650 MG/20.3 ML UDCUP PO SCH ×4 (02:50→21:27)
[2018-02-20] MEDS: Ferrous Sulfate 325 MG TAB PO SCH ×2 (10:01→21:28)
[2018-02-20] MEDS: Famotidine 20 MG TAB PO SCH ×2 (10:01→21:27)
[2018-02-20] MEDS: Amantadine HCl 100 mg Capsule PO SCH (10:01)
[2018-02-20] MEDS: Ascorbic Acid 500 mg Chewable Tablet PO SCH ×2 (10:01→21:27)
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
[2018-02-20] MEDS: Melatonin 3 MG TAB PO SCH (21:28)
[2018-02-21] MEDS: Acetaminophen 650 MG/20.3 ML UDCUP PO SCH ×4 (03:11→20:47)
[2018-02-21] MEDS: Ferrous Sulfate 325 MG TAB PO SCH ×2 (09:26→20:47)
[2018-02-21] MEDS: Amantadine HCl 100 mg Capsule PO SCH (09:26)
[2018-02-21] MEDS: Ascorbic Acid 500 mg Chewable Tablet PO SCH ×2 (09:26→20:47)
[2018-02-21] MEDS: Famotidine 20 MG TAB PO SCH ×2 (09:26→20:47)
[2018-02-21] MEDS: Scopolamine 1.5 mg/72 hour Patch TD SCH (12:44)
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
[2018-02-21] MEDS: Melatonin 3 MG TAB PO SCH (20:48)
[2018-02-22] MEDS ORDERED: Cyclobenzaprine 10 MG TAB PO PRN (00:36)
[2018-02-22] MEDS: Acetaminophen 650 MG/20.3 ML UDCUP PO SCH ×4 (03:14→20:44)
[2018-02-22] MEDS: Amantadine HCl 100 mg Capsule PO SCH (07:38)
[2018-02-22] MEDS: Ferrous Sulfate 325 MG TAB PO SCH ×2 (10:10→20:44)
[2018-02-22] MEDS: Ascorbic Acid 500 mg Chewable Tablet PO SCH ×2 (10:10→20:45)
[2018-02-22] MEDS: Famotidine 20 MG TAB PO SCH ×2 (10:10→20:44)
[2018-02-22] MEDS: Docusate Sodium 100 MG/10 ML UDCUP PO SCH (20:43)
[2018-02-22] MEDS: Melatonin 3 MG TAB PO SCH (20:45)
[2018-02-22] MEDS ORDERED: Docusate 100 MG CAP PO SCH (21:00)
[2018-02-23] MEDS: Acetaminophen 650 MG/20.3 ML UDCUP PO SCH ×4 (04:04→20:29)
[2018-02-23] MEDS: Amantadine HCl 100 mg Capsule PO SCH (05:23)
[2018-02-23] MEDS: Ascorbic Acid 500 mg Chewable Tablet PO SCH ×2 (09:51→20:28)
[2018-02-23] MEDS: Famotidine 20 MG TAB PO SCH ×2 (09:51→20:28)
[2018-02-23] MEDS: Ferrous Sulfate 325 MG TAB PO SCH ×2 (09:51→20:28)
[2018-02-23] MEDS: Docusate Sodium 100 MG/10 ML UDCUP PO SCH ×2 (09:52→20:29)
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
[2018-02-23] MEDS: Melatonin 3 MG TAB PO SCH (20:28)
[2018-02-24] MEDS: Acetaminophen 650 MG/20.3 ML UDCUP PO SCH ×2 (03:44→08:37)
[2018-02-24] MEDS: Amantadine HCl 100 mg Capsule PO SCH (05:35)
[2018-02-24 08:36] VITALS: BP 115/75; TEMP 97.7
[2018-02-24] MEDS: Ferrous Sulfate 325 MG TAB PO SCH (08:37)
[2018-02-24] MEDS: Famotidine 20 MG TAB PO SCH (08:37)
[2018-02-24] MEDS: Ascorbic Acid 500 mg Chewable Tablet PO SCH (08:37)
[2018-02-24] MEDS: Docusate Sodium 100 MG/10 ML UDCUP PO SCH (08:49)
== END 2018-02-24 09:20 | DRG 3 ==
LOC: ERS 19:04 → SDC/OP 20:14 → CCU 22:01 → SURG A 02-16 18:29
PROVIDERS: ADMIT Specialist; ATTEND Specialist
PROC: 5A1955Z Respiratory Ventilation, Greater than 96 Consecutive Hours (ICD-10-PCS; 2018-02-06)
PROC: 009300Z Drainage of Intracranial Epidural Space with Drainage Device, Open Approach (ICD-10-PCS; 2018-02-06)
PROC: 05H633Z Insertion of Infusion Device into Left Subclavian Vein, Percutaneous Approach (ICD-10-PCS; 2018-02-06)
PROC: 04HY32Z Insertion of Monitoring Device into Lower Artery, Percutaneous Approach (ICD-10-PCS; 2018-02-08)
PROC: 0B9J8ZZ Drainage of Left Lower Lung Lobe, Via Natural or Artificial Opening Endoscopic (ICD-10-PCS; 2018-02-10)
PROC: 0B9C8ZZ Drainage of Right Upper Lung Lobe, Via Natural or Artificial Opening Endoscopic (ICD-10-PCS; 2018-02-10)
PROC: 0B9G8ZZ Drainage of Left Upper Lung Lobe, Via Natural or Artificial Opening Endoscopic (ICD-10-PCS; 2018-02-10)
PROC: 0B9F8ZZ Drainage of Right Lower Lung Lobe, Via Natural or Artificial Opening Endoscopic (ICD-10-PCS; 2018-02-10)
PROC: 0B113F4 Bypass Trachea to Cutaneous with Tracheostomy Device, Percutaneous Approach (ICD-10-PCS; principal; 2018-02-11)
PROC: 0B9F8ZZ Drainage of Right Lower Lung Lobe, Via Natural or Artificial Opening Endoscopic (ICD-10-PCS; 2018-02-11)
PROC: 0B9C8ZZ Drainage of Right Upper Lung Lobe, Via Natural or Artificial Opening Endoscopic (ICD-10-PCS; 2018-02-11)
DX: S06.4X1A Epidural hemorrhage with loss of consciousness of 30 minutes or less, initial encounter (principal); J15.6 Pneumonia due to other Gram-negative bacteria; J15.20 Pneumonia due to staphylococcus, unspecified; J96.00 Acute respiratory failure, unspecified whether with hypoxia or hypercapnia; J69.0 Pneumonitis due to inhalation of food and vomit; K50.90 Crohn's disease, unspecified, without complications; T17.890A Other foreign object in other parts of respiratory tract causing asphyxiation, initial encounter; D62 Acute posthemorrhagic anemia; E87.3 Alkalosis; H49.00 Third [oculomotor] nerve palsy, unspecified eye; V94.31XA Injury to rider of (inflatable) recreational watercraft being pulled behind other watercraft, initial encounter; Y93.16 Activity, rowing, canoeing, kayaking, rafting and tubing; Y92.828 Other wilderness area as the place of occurrence of the external cause; Y99.9 Unspecified external cause status; E83.39 Other disorders of phosphorus metabolism; E87.6 Hypokalemia; X58.XXXA Exposure to other specified factors, initial encounter; Y93.9 Activity, unspecified; Y92.9 Unspecified place or not applicable; S03.01XA Dislocation of jaw, right side, initial encounter; S02.19XA Other fracture of base of skull, initial encounter for closed fracture; S01.01XA Laceration without foreign body of scalp, initial encounter; S01.111A Laceration without foreign body of right eyelid and periocular area, initial encounter; R40.2432 Glasgow coma scale score 3-8, at arrival to emergency department; S02.32XA Fracture of orbital floor, left side, initial encounter for closed fracture; S02.31XA Fracture of orbital floor, right side, initial encounter for closed fracture
CPT/HCPCS: 36415; 36416; 36430; 36556; 51702; 70250; 70450; 70487; 71045; 71260; 72125; 74018; 74177; 80048; 80053; 80202; 80307; 81001; 81003; 82150; 82805; 83735; 83930; 84100; 85025; 85610; 85730; 86850; 86900; 86901; 87040; 87070; 87077; 87086; 87186; 87205; 89220; 90471; 90715; 93970; 94002; 94003; 94640; 96374; 96375; A4216; G0390; G8978-GP-CN; G8979-GP-CJ; G8987-GO-CM; G8988-GO-CK; G9162-GN-CN; G9163-GN-CJ; J0131; J0360; J0461; J0744; J1100; J1165; J1170; J1940; J2001; J2150; J2250; J2270; J2543; J2704; J3010; J3370; J3475; J3490; J7050; J7799; P9016; P9045; Q2009; S0028

== ENCOUNTER 2018-03-31 12:20 | Outpatient (CLI) | payer OTHER ==
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
== END 2018-03-31 12:21 | disposition home or self-care (01) ==
LOC: CT 12:20
PROVIDERS: ATTEND Neurological Surgery
DX: S06.4X9A Epidural hemorrhage with loss of consciousness of unspecified duration, initial encounter (principal); Z98.890 Other specified postprocedural states
CPT/HCPCS: 70450

== ENCOUNTER 2018-05-26 05:50 | Inpatient (IN) | payer OTHER ==
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
[2018-05-26] MEDS ORDERED: Thrombin 5000 UNITS/5 ML VIAL ONE (06:30)
[2018-05-26] MEDS ORDERED: Promethazine HCl 25 MG/ML VIAL ONE (06:33)
[2018-05-26] MEDS ORDERED: Phenylephrine HCL 10 MG/ML VIAL ONE (06:33)
[2018-05-26] MEDS ORDERED: CEFAZOLIN/Water 2 GM/20 ML SYRINGE ONE (06:34)
[2018-05-26] MEDS ORDERED: Midazolam HCl 2 mg/2 ml Vial ONE (06:34)
[2018-05-26] MEDS ORDERED: Sodium Chloride 0.9% 10 ML ONE ×2 (06:41→08:11)
[2018-05-26] MEDS ORDERED: Fentanyl 100 MCG/2 ML VIAL ONE ×3 (06:54→09:54)
[2018-05-26] MEDS ORDERED: Lidocaine 0.5%/Epinephrine 1:200,000 50 ml Vial ONE (08:22)
[2018-05-26] MEDS ORDERED: Bacitracin Zinc Ointment 30 gm TUBE ONE (09:43)
[2018-05-26] MEDS ORDERED: Docusate 100 MG CAP PO PRN (09:51)
[2018-05-26] MEDS ORDERED: diphenhydrAMINE 50 MG/ML VIAL IVP PRN (09:51)
[2018-05-26] MEDS ORDERED: Mag-Al 1200 mg/1200 mg/30 ML UDCUP PO PRN (09:51)
[2018-05-26] MEDS ORDERED: Acetaminophen 1,000 MG in Premix Bag 1 BAG IVPB PRN (09:51)
[2018-05-26] MEDS ORDERED: Labetalol HCl 100 MG/20 ML VIAL SLOW IVP PRN (09:51)
[2018-05-26] MEDS ORDERED: Morphine 2 MG/ML SYRINGE SLOW IVP PRN (09:51)
[2018-05-26] MEDS ORDERED: hydrALAZINE 20 MG/ML VIAL SLOW IVP PRN (09:51)
[2018-05-26] MEDS ORDERED: Ondansetron HCl/PF 4 MG/2 ML Vial IVP PRN ×2 (09:51→10:12)
[2018-05-26] MEDS ORDERED: Morphine Sulfate 2 MG/ML SYRINGE SLOW IVP PRN (10:12)
[2018-05-26] MEDS ORDERED: HYDROmorphone 2 MG/ML VIAL SLOW IVP PRN (10:12)
[2018-05-26] MEDS ORDERED: Promethazine HCl 25 MG/ML VIAL SLOW IVP PRN (10:12)
[2018-05-26] MEDS ORDERED: Promethazine HCl 25 MG/ML VIAL IM PRN (10:12)
[2018-05-26] MEDS ORDERED: PACU-Morphine 4MG/ML VIAL SLOW IVP PRN (10:12)
[2018-05-26] MEDS ORDERED: Meperidine HCl/PF 25 MG/ML VIAL SLOW IVP PRN (10:12)
--- NOTE | 2018-05-26 10:12 | OP ---
DATE OF PROCEDURE: 05/26/2018 SURGEON: Andrea Lou M.D. GREEN CHAIN MARKER: Amadou Washington PA-C INDICATION: A prior bilateral hemicraniectomy. PROCEDURE: Bilateral reopening of scalp incisions with a cranioplasty and replacement of bone flap. ANESTHESIA: General. TECHNIQUE: The patient was brought into the operating room and placed under general anesthesia. He was placed on the table in supine position. His head was turned slightly to the left for exposure of the right side. His whole head was shaved. His prior curvilinear incision on the right side was id entified and prepped and draped in usual sterile fashion. Following appropriate operative pause, the incision was created. The skin and galea were carefully reflected anteriorly and inferiorly to expo se the bone flap as well as the underlying dura. We were able to define the bone edge around the bon y defect. A synthetic cranioplasty bone flap was returned and secured with 3-point fixation. The wo und was then irrigated. Hemostasis was maintained throughout. The wound was then closed in anatomic layers. We then broke down the sterile field and then turned his head to the right for exposure of the left side. The prior curvilinear incision was identified and prepped and draped in the usual holly rile fashion. The incision was again created. The galea and skin were reflected anteriorly and infe riorly to expose the bone defect as well as the underlying dura. The bone edges were again identifie d. The cranioplasty bone flap was then secured with 3-point fixation. Irrigation was performed as w as hemostasis maintained. The wound was then closed in anatomic layers and a head wrap was applied. There were no known procedural complications.
[2018-05-26] MEDS: Sodium Chloride 0.9% 1,000 ML IV SCH ×2 (13:35→23:44)
[2018-05-26 14:16] VITALS: BMI 23.8
[2018-05-26] MEDS: CEFAZOLIN/Water 2 GM/20 ML SYRINGE SLOW IVP SCH ×2 (15:20→23:43)
[2018-05-26] MEDS ORDERED: ePHEDrine/0.9% NaCl/PF SYRINGE 50 mg/10 ml ONE (17:37)
[2018-05-26] MEDS ORDERED: Dexamethasone 20 MG/5 ML VIAL ONE (17:37)
[2018-05-26] MEDS ORDERED: Vecuronium 10 MG VIAL ONE (17:37)
[2018-05-26] MEDS ORDERED: Lidocaine 1% PF 5 ML VIAL ONE (17:37)
[2018-05-26] MEDS ORDERED: PROPOFOL 200 MG/20 ML VIAL ONE (17:37)
[2018-05-26] MEDS ORDERED: Ondansetron HCl/PF 4 MG/2 ML Vial ONE (17:37)
[2018-05-26] MEDS ORDERED: Metoclopramide HCl 10 MG/2 ML VIAL ONE (17:37)
[2018-05-26] MEDS ORDERED: Glycopyrrolate 0.2 MG/ML 5 ML SYRINGE ONE (17:37)
[2018-05-26] MEDS ORDERED: PHENYLEPHRINE-NS 100 MCG/ML 10 ML SYRINGE ONE (17:37)
[2018-05-26] MEDS: Acetaminophen 500 MG TAB PO PRN (18:07)
[2018-05-27] MEDS: Lactinex Tablet PO SCH (08:40)
[2018-05-27] MEDS: Ferrous Sulfate 325 MG TAB PO SCH (08:41)
--- NOTE | 2018-05-27 10:21 | PRG ---
DATE OF SERVICE: 05/27/2018 SUBJECTIVE: Mr. Anguiano is now postop day #1 following bilateral cranioplasty and is in the ICU bed this morning, very comfortable with minimal headache. He has some mild swelling on the right latera l orbit which is not unexpected. This was the more CP incision during surgery. His head wrap is sti ll on and very tight as it should be. He denies any nausea or significant other trouble. He was up in a bedside chair yesterday, doing well. Plan will be to transfer him out to the surgical floor to see how he does. He could potentially be discharged as early as this evening, but he also could stay another night, which is within reason. We will have him mobilized with the nursing staff and see ho w well he tolerates this.
[2018-05-27] MEDS: Sodium Chloride 0.9% 1,000 ML IV SCH (11:03)
[2018-05-27] MEDS: Acetaminophen 500 MG TAB PO PRN ×2 (13:32→19:55)
[2018-05-28] MEDS: Acetaminophen 500 MG TAB PO PRN ×2 (03:55→10:04)
[2018-05-28] MEDS: Lactinex Tablet PO SCH (08:12)
[2018-05-28] MEDS: Ferrous Sulfate 325 MG TAB PO SCH (08:12)
[2018-05-28] MEDS: Sodium Chloride 0.9% 1,000 ML IV SCH (11:25)
[2018-05-28 13:06] VITALS: BP 123/73; TEMP 97.9
== END 2018-05-28 12:57 | disposition home or self-care (01) | DRG 517 ==
LOC: SURG A 05:50 → CCU 11:07 → SURG B 05-27 13:23
PROVIDERS: ADMIT Neurological Surgery; ATTEND Neurological Surgery
PROC: 0NR10JZ Replacement of Frontal Bone with Synthetic Substitute, Open Approach (ICD-10-PCS; principal; 2018-05-26)
PROC: 0NR Head and Facial Bones, Replacement (ICD-10-PCS; 2018-05-26)
PROC: 0NR Head and Facial Bones, Replacement (ICD-10-PCS; 2018-05-26)
DX: M95.2 Other acquired deformity of head (principal); Z98.890 Other specified postprocedural states
CPT/HCPCS: C1713; G8978-GP-CJ; G8979-GP-CJ; G8980-GP-CJ; G8987-GO-CH; G8988-GO-CH; G8989-GO-CH; J0131; J1100; J2001; J2250; J2270; J2370; J2405; J2550; J2704; J2765; J3010; J3490